=== PATIENT | female | born 1975 | race Caucasian/White ===

== ENCOUNTER 2016-06-25 03:07 | Emergency (ER) | payer OTHER ==
[~2016-06-25] VITALS: Ht 170.2 cm; Wt 61.2 kg
[2016-06-25 03:53] LABS: Urine Bilirubin Negative (Negative); Urine Glucose Normal (Normal); Urine Ketone Negative (Negative); Urine Nitrite Negative (Negative); Urine RBC 6 /hpf (0 - 4); Urine Squamous Epithelial Cell FEW /hpf (<5); Urine Urobilinogen Normal (Negative)
[2016-06-25 03:55] LABS: Urine Blood 3+ /uL (Negative)
[2016-06-25 03:56] LABS: Urine Color Amber (Yellow)
[2016-06-25 04:47] VITALS: BP 112/76
== END 2016-06-25 04:50 | disposition home or self-care (01) ==
LOC: ER 03:13
DX: N39.0 Urinary tract infection, site not specified (principal); Z88.8 Allergy status to other drugs, medicaments and biological substances
CPT/HCPCS: 81001